=== PATIENT | female | born 1955 | race Caucasian/White ===

== ENCOUNTER 2017-06-22 17:26 | Emergency (ER) | payer SELFPAY ==
[~2017-06-22] VITALS: Ht 167.6 cm; Wt 82.0 kg
[~2017-06-22 17:26] MED LIST: CLIN1CAP5 PO; IBUP-232 PO; LORTA5 PO; MOTR200T PO
[2017-06-22 17:30] VITALS: BP 223/143; PULSE 119; RESP 18; TEMP 98.2; O2SAT 95
--- NOTE | 2017-06-22 18:55 | PD ---
HPI Chief Complaint: Oral / Dental Pain or Problem Time Seen by Provider: 18:41 Travel History International Travel<30 days: No Contact w/Intl Traveler<30days: No Traveled to known affect area: No History of Present Illness HPI 61-year-old female presents to emergency department complaining of left sided tooth pain for approximately 1 week. She describes her pain as occasionally sharp but constant that radiates into her jaw and her ear. Pain has worsened over the last 3-4 days and is excruciating. She has taken ibuprofen but this has not relieved her pain. States she has had subjective fevers but no actual temperature. Otherwise denies chest pain, shortness of breath, back pain. Denies chronic medical issues or chronic medication use. She does not have a dentist. She denies fever, chills, chest pain, shortness breath, back pain, abdominal pain. PFSH Past Medical History Asthma: No Blood Disorders: No Anxiety: No Depression: No Heart Rhythm Problems: Yes Cancer: No Cardiovascular Problems: Yes (STENT) High Cholesterol: No Chemotherapy: No Chest Pain: Yes Congestive Heart Failure: Yes COPD: Yes Diabetes: No Diminished Hearing: No Endocrine: No (S) Gastrointestinal Disorders: Yes Genitourinary: Yes Hypertension: Yes Immune Disorder: No Musculoskeletal: No Neurologic: No Psychiatric: No Reproductive: No Respiratory: No Myocardial Infarction: Yes (04/2013) Radiation Therapy: No Sleep Apnea: No (S) Thyroid Disease: No Ulcer: Yes Influenza Vaccination: No ?: Not Past Surgical History Abdominal Surgery: Yes (NAVEL REMOVED) Coronary Stent: Yes (04/2013) Gynecologic Surgery: Yes Hysterectomy: Yes Oral Surgery: Yes (TONSILECTOMY) Tonsillectomy: Yes Other Surgery: Yes (RECTAL/BLADDER/HYSTERECTOMY,CARDIAC STENT 2) Social History Alcohol Use: No (DENIES) Tobacco Use: No (1PK/DAY/ QUIT 04/2013) Substance Use: No Allergies-Medications (Allergen,Severity, Reaction): Coded Allergies: procaine (Unverified Allergy, Severe, Dizziness, 06/22/17) Reported Meds & Prescriptions Reported Meds & Active Scripts Active Tramadol (Tramadol HCl) 50 Mg Tab 50 Mg PO Q8H PRN 3 Days Penicillin V Potassium 500 Mg Tab 500 Mg PO Q8H 7 Days Magic Mouthwash Pediatric/Adult Liq (Lidocaine/Diphenhydr/Alum/Mg/Simeth) 60 Ml Susp 5 Ml SWISH-SWAL ACHS Each 5mL contains: Diphenydramine 4.5mg, Viscous Lidocaine 2% 10mg, Maalox Advanced Regular Strength 2.7ml Review of Systems Except as stated in HPI: all other systems reviewed are Neg Physical Exam Narrative GENERAL: Well-developed well-nourished in moderate distress SKIN: Focused skin assessment warm/dry. HEAD: Atraumatic. Normocephalic. EYES: Pupils equal and round. No scleral icterus. No injection or drainage. ENT: No nasal bleeding or discharge. Mucous membranes pink and moist. Poor dentition, mild erythema of the right lower gingiva near the molars. Tender to palpation without fluctuance of the left lower posterior gingiva NECK: Trachea midline. No JVD. Mild tenderness to palpation of the left anterior cervical nodes CARDIOVASCULAR: Regular rate and rhythm. No murmur appreciated. RESPIRATORY: No accessory muscle use. Clear to auscultation. Breath sounds equal bilaterally. MUSCULOSKELETAL: No obvious deformities. No clubbing. No cyanosis. No edema. NEUROLOGICAL: Awake and alert. No obvious cranial nerve deficits. Motor grossly within normal limits. Normal speech. PSYCHIATRIC: Appropriate mood and affect; insight and judgment normal. Data Data Last Documented VS Vital Signs Date Time Temp Pulse Resp B/P (MAP) Pulse Ox O2 Delivery O2 Flow Rate FiO2 06/22/17 20:01 06/22/17 19:19 88 98 06/22/17 17:30 98.2 18 Orders Orders Acetamin-Hydrocod 325-5 Mg ([place] 5-325 (06/22/17 19:00) Ed Discharge Order (06/22/17 19:54) [facility] [place] Medical Decision Making Medical Screen Exam Complete: Yes Emergency Medical Condition: Yes Differential Diagnosis Tooth abscess versus gingivitis versus pulpitis Narrative Course 61-year-old female presents to emergency department complaining of left lower tooth pain for 1 week. States that her pain has worsened over the last 3-4 days which is why she is here. Patient does not have a dentist. Physical exam demonstrates 61-year-old female in moderate distress, poor dentition, multiple dental caries. TTP left lower molars without exudate or fluctuance. Vital signs stable E force consulted. No controlled substance fills Patient prescribed antibiotics, Magic mouthwash, and a short course of tramadol. Patient advised to follow-up with a dentist and PCP Advised to return to ED if signs symptoms persist or worsen Diagnosis Primary Impression: Tooth abscess Referrals: Dentist Additional Instructions: Use mouthwash as prescribed. Continue ibuprofen for symptoms. Scripts Tramadol (Tramadol) 50 Mg Tab 50 MG PO Q8H Y for PAIN for 3 Days, #9 TAB 0 Refills Prov: Malorie Marquez MD 06/22/17 Penicillin V Potassium (Penicillin V Potassium) 500 Mg Tab 500 MG PO Q8H for Infection for 7 Days, #21 TAB 0 Refills Prov: Juan Smith MD 06/22/17 Vnowgoiuofpdoee-Sdekrlzgm-Lva-Alum-Simeth Liq (Magic Mouthwash Pediatric/Adult Liq) 60 Ml Susp 5 ML SWISH-SWAL ACHS for Mouth sores, #60 ML 0 Refills Each 5mL contains: Diphenydramine 4.5mg, Viscous Lidocaine 2% 10mg, Maalox Advanced Regular Strength 2.7ml Prov: Juan Smith MD 06/22/17 Disposition: 01 DISCHARGE HOME Condition: Stable Shelly Del Real Jun 22, 2017 18:55
[2017-06-22] MEDS ORDERED: ACETAMINOPHEN/HYDROcodone 325 MG/5 MG TAB PO ONE (19:00)
[2017-06-22] MEDS ORDERED: PENI500T PO (19:05)
[2017-06-22] MEDS ORDERED: MAGICPED SWISH-SWAL (19:05)
[2017-06-22 19:19] VITALS: BP 171/100; PULSE 88; O2SAT 98
[2017-06-22] MEDS ORDERED: TRAM50TA PO (19:53)
== END 2017-06-22 20:01 | disposition home or self-care (01) ==
LOC: PHED 17:26 → PHEFT 20:01
DX: K04.7 Periapical abscess without sinus (principal); J44.9 Chronic obstructive pulmonary disease, unspecified; I10 Essential (primary) hypertension
CPT/HCPCS: 99284

== ENCOUNTER 2017-09-12 07:59 | Inpatient (IN) | payer BC ==
[~2017-09-12] VITALS: Ht 167.6 cm; Wt 85.2 kg
[~2017-09-12 07:59] MED LIST changes: -CLIN1CAP5 PO; -IBUP-232 PO; -LORTA5 PO; +MAGICPED SWISH-SWAL; -MOTR200T PO; +PENI500T PO; +TRAM50TA PO
[2017-09-12 08:04] VITALS: BP 159/90; PULSE 90; RESP 18; TEMP 97.6; O2SAT 100
[2017-09-12] MEDS ORDERED: ASPI-183 PO (08:43)
[2017-09-12] MEDS ORDERED: IBUP-232 PO (08:43)
[2017-09-12] MEDS ORDERED: PANTOPRAZOLE INJ 80 MG in SODIUM CHLORIDE 0.9% INJ 35 ML IV ONE (08:48)
[2017-09-12] MEDS ORDERED: SODIUM CHLOR 0.9% 1000 ML INJ 1,000 ML IV SCH (08:48)
--- NOTE | 2017-09-12 08:52 | PD ---
HPI Chief Complaint: GI Bleed Time Seen by Provider: 08:35 Travel History International Travel<30 days: No Contact w/Intl Traveler<30days: No Traveled to known affect area: No History of Present Illness HPI This 62-year-old female says she's been having blood per rectum for the last 5 days. His been having very foul smelling black stools. At times they're red. She's been feeling weak and dizzy. Her says she passed out last night. Her bowel movements have been bloody with clots and she's been having multiple times per day. This started afternoon around 2 PM and she thinks she had about 4 bowel movements on . He has been bloated. This has never happened to her before. She's been taking about 6 ibuprofen per day because of back trouble. She has a history of an [place] 3-4 years ago and takes aspirin daily though she has not had it the last 2 days. She has occasional crampy lower abdominal pain. He does not drink alcohol. She has never had endoscopy. She has had hysterectomy and repair of a rectal prolapse several years ago. PFSH Past Medical History Hx Anticoagulant Therapy: Yes (ASA 325MG DAILY) Asthma: No Blood Disorders: No Anxiety: No Depression: No Heart Rhythm Problems: Yes Cancer: No Cardiovascular Problems: Yes (STENT) High Cholesterol: No Chemotherapy: No Chest Pain: Yes Congestive Heart Failure: Yes COPD: Yes Diabetes: No Diminished Hearing: No Endocrine: No (S) Gastrointestinal Disorders: Yes Genitourinary: Yes Hypertension: Yes Immune Disorder: No Implanted Vascular Access Dvce: No Musculoskeletal: No Neurologic: No Psychiatric: No Reproductive: No Respiratory: No Myocardial Infarction: Yes (04/2013) Radiation Therapy: No Sleep Apnea: No (S) Thyroid Disease: No Ulcer: Yes Tetanus Vaccination: > 5 Years ?: Not Past Surgical History Abdominal Surgery: Yes (NAVEL REMOVED) Coronary Stent: Yes (04/2013) Gynecologic Surgery: Yes Hysterectomy: Yes Oral Surgery: Yes (TONSILECTOMY) Tonsillectomy: Yes Other Surgery: Yes (RECTAL/BLADDER/HYSTERECTOMY,CARDIAC STENT 2) Social History Alcohol Use: No (DENIES) Tobacco Use: No Substance Use: No Allergies-Medications (Allergen,Severity, Reaction): Coded Allergies: procaine (Unverified Allergy, Severe, Dizziness, 06/22/17) Reported Meds & Prescriptions Reported Meds & Active Scripts Active Reported Ibuprofen 600 Mg Tab 600 Mg PO Q6H PRN Aspirin 325 Mg Tab 325 Mg PO DAILY Review of Systems General / Constitutional: No: Fever, Chills Eyes: No: Diploplia, Blurred Vision HENT: No: Headaches, Vertigo Cardiovascular: No: Chest Pain or Discomfort, Palpitations Respiratory: No: Cough, Shortness of Breath Gastrointestinal: Positive: Nausea, Abdominal Pain, Hematochezia, Loss of Appetite Genitourinary: No: Urgency, Frequency Musculoskeletal: No: Myalgias, Arthralgias Skin: No Rash, No Itching Neurologic: Positive: Weakness, Dizziness, Syncope Endocrine: No: Heat Intolerance, Cold Intolerance Hematologic/Lymphatic: No: Easy Bruising Physical Exam Narrative GENERAL: Well-developed female SKIN: Focused skin assessment warm/dry. HEAD: Atraumatic. Normocephalic. EYES: Pupils equal and round. No scleral icterus. No injection or drainage. ENT: No nasal bleeding or discharge. Mucous membranes pink and moist. NECK: Trachea midline. No JVD. CARDIOVASCULAR: Regular rate and rhythm. No murmur appreciated. RESPIRATORY: No accessory muscle use. Clear to auscultation. Breath sounds equal bilaterally. GASTROINTESTINAL: Abdomen soft, non-tender, nondistended. Hepatic and splenic margins not palpable. Rectal exam there are no masses and no tenderness. There is some black stool which is guaiac positive MUSCULOSKELETAL: No obvious deformities. No clubbing. No cyanosis. No edema. NEUROLOGICAL: Awake and alert. No obvious cranial nerve deficits. Motor grossly within normal limits. Normal speech. PSYCHIATRIC: Appropriate mood and affect; insight and judgment normal. Data Data Last Documented VS Vital Signs Date Time Temp Pulse Resp B/P (MAP) Pulse Ox O2 Delivery O2 Flow Rate FiO2 09/12/17 08:40 18 09/12/17 08:04 97.6 90 159/90 (113) 100 Room Air Orders Orders Complete Blood Count With Diff (09/12/17 08:48) Comprehensive Metabolic Panel (09/12/17 08:48) Lipase (09/12/17 08:48) Prothrombin Time / Inr (Pt) (09/12/17 08:48) Act Partial Throm Time (Ptt) (09/12/17 08:48) Urinalysis - C+S If Indicated (09/12/17 08:48) Type And Screen (09/12/17 08:48) Ecg Monitoring (09/12/17 08:48) Iv Access Insert/Monitor (09/12/17 08:48) Oximetry (09/12/17 08:48) Sodium Chlor 0.9% 1000 Ml Inj (Ns 1000 M (09/12/17 08:48) Sodium Chloride 0.9% Flush (Ns Flush) (09/12/17 09:00) Sodium Chloride 0.9... W/Pantoprazole In (09/12/17 08:48) Sodium Chloride 0.9... W/Pantoprazole In (09/12/17 08:48) Urine Culture (09/12/17 09:00) Labs Laboratory Tests Test 09/12/17 09:00 09/12/17 09:35 Urine Color YELLOW Urine Turbidity HAZY Urine pH 6.0 Urine Specific [place] 1.015 Urine Protein NEG mg/dL Urine Glucose (UA) NEG mg/dL Urine Ketones NEG mg/dL Urine Occult Blood TRACE Urine Nitrite NEG Urine Bilirubin NEG Urine Leukocyte Esterase MOD Urine RBC 0-2 /hpf Urine WBC 25-49 /hpf Urine Squamous Epithelial Cells > 8 /hpf Urine Bacteria FEW /hpf Microscopic Urinalysis Comment CULTURE INDICATED White Blood Count 10.2 TH/MM3 Red Blood Count 3.47 MIL/MM3 Hemoglobin 9.9 GM/DL Hematocrit 30.0 % Mean Corpuscular Volume 86.4 FL Mean Corpuscular Hemoglobin 28.5 PG Mean Corpuscular Hemoglobin Concent 33.0 % Red Cell Distribution Width 12.6 % Platelet Count 233 TH/MM3 Mean Platelet Volume 8.9 FL Neutrophils (%) (Auto) 71.7 % Lymphocytes (%) (Auto) 19.6 % Monocytes (%) (Auto) 4.8 % Eosinophils (%) (Auto) 0.7 % Basophils (%) (Auto) 3.2 % Neutrophils # (Auto) 7.3 TH/MM3 Lymphocytes # (Auto) 2.0 TH/MM3 Monocytes # (Auto) 0.5 TH/MM3 Eosinophils # (Auto) 0.1 TH/MM3 Basophils # (Auto) 0.3 TH/MM3 CBC Comment DIFF FINAL Differential Comment MDM Medical Decision Making Medical Screen Exam Complete: Yes Emergency Medical Condition: Yes Medical Record Reviewed: Yes Differential Diagnosis Differential includes upper GI bleed, lower GI bleed, anemia Narrative Course Her hemoglobin is 9.9. Urinalysis shows an incidental urinary tract infection Josh Pretty MD Sep 12, 2017 08:52
[2017-09-12] MEDS ORDERED: SODIUM CHLORIDE 0.9% FLUSH 10 ML FLUSH IVF PRN (09:00)
[2017-09-12 09:35] VITALS: O2SAT 96
[2017-09-12 09:43] LABS: AUTOMATED NEUTROPHIL # 7.3 TH/MM3 (1.8-7.7); BASOPHIL # 0.3 TH/MM3 (0-0.2); BASOPHIL % 3.2 % (0.0-2.0); EOSINOPHIL # 0.1 TH/MM3 (0-0.4); EOSINOPHIL % 0.7 % (0.0-4.0); HEMOGLOBIN 9.9 GM/DL (11.6-15.3); LYMPH % 19.6 % (9.0-44.0); MEAN CELL VOLUME 86.4 FL (80.0-100.0); MEAN CORPUSCULAR HEMOGLOBIN 28.5 PG (27.0-34.0); MEAN PLATELET VOLUME 8.9 FL (7.0-11.0); MONO % 4.8 % (0.0-8.0); MONOCYTE # 0.5 TH/MM3 (0-0.9); NEUT % 71.7 % (16.0-70.0); PLATELET COUNT 233 TH/MM3 (150-450); RED BLOOD COUNT 3.47 MIL/MM3 (4.00-5.30); RED CELL DISTRIBUTION WIDTH 12.6 % (11.6-17.2); WHITE BLOOD COUNT 10.2 TH/MM3 (4.0-11.0)
[2017-09-12 09:44] LABS: BILIRUBIN, URINE NEG (NEG); GLUCOSE,URINE NEG (NEG); KETONE, URINE NEG (NEG); NITRITE,URINE NEG (NEG); URINE LEUKOCYTE ESTERASE MOD (NEG)
[2017-09-12 09:46] LABS: BLOOD, URINE TRACE (NEG); URINE COLOR YELLOW (YELLW/STRAW)
[2017-09-12 09:48] LABS: BACTERIA, URINE FEW /hpf; RBC, URINE 0-2 /hpf (0-3); SQUAMOUS EPITHELIAL CELL URINE > 8 /hpf (0-5)
[2017-09-12 09:55] LABS: PROTHROMBIN TIME - PATIENT 10.5 SEC (9.8-11.6)
[2017-09-12 09:56] LABS: ALBUMIN 3.7 GM/DL (3.4-5.0); BICARBONATE 24.1 MEQ/L (21.0-32.0); CALCIUM 8.8 MG/DL (8.5-10.1); GLUCOSE,RANDOM 115 MG/DL (74-106)
[2017-09-12 09:57] LABS: LIPASE 71 U/L (73-393)
[2017-09-12 10:00] LABS: CREATININE 0.73 MG/DL (0.50-1.00); GLOMERULAR FILTRATION RATE 81 ML/MIN (>89)
[2017-09-12] MEDS ORDERED: cefTRIAXone INJ 1,000 MG in SODIUM CHLORIDE 0.9% INJ 100 ML IV ONE (10:00)
[2017-09-12 10:01] LABS: TOTAL BILIRUBIN ADULT 0.5 MG/DL (0.2-1.0); TOTAL PROTEIN 6.7 GM/DL (6.4-8.2)
[2017-09-12 10:03] LABS: ALKALINE PHOSPHATASE 60 U/L (45-117)
[2017-09-12 10:04] LABS: CHLORIDE 105 MEQ/L (98-107); SODIUM (NA) 138 MEQ/L (136-145)
[2017-09-12 10:07] LABS: ALT (GPT) 22 U/L (10-53)
[2017-09-12 10:11] LABS: AST (GOT) 15 U/L (15-37); BLOOD UREA NITROGEN 17 MG/DL (7-18)
[2017-09-12] MEDS ORDERED: SODIUM CHLORIDE 0.9% FLUSH 10 ML FLUSH IV FLUSH PRN (10:45)
[2017-09-12] MEDS ORDERED: NALOXONE HCL 0.4 MG/ML AMP IV PUSH PRN (10:45)
[2017-09-12] MEDS ORDERED: ONDANSETRON HCL 4 MG/2 ML VIAL IVP PRN (10:45)
[2017-09-12 10:50] VITALS: BP 137/73; PULSE 77; RESP 16; O2SAT 99
[2017-09-12] MEDS: PANTOPRAZOLE INJ 80 MG in SODIUM CHLORIDE 0.9% INJ 100 ML IV SCH ×2 (11:00→19:53)
[2017-09-12] MEDS: SODIUM CHLOR 0.9% 1000 ML INJ 1,000 ML IV SCH ×2 (11:47→19:58)
[2017-09-12 12:50] VITALS: BP 127/72; PULSE 67; TEMP 98.3; O2SAT 99
--- NOTE | 2017-09-12 13:57 | HHI.HP ---
[facility] Service [place] [facility] Primary Care Physician No Primary Care Physician Admission Diagnosis GI BLEED Diagnoses: Chief Complaint: Abdominal pain and GI bleed Travel History International Travel<30 Days: No Contact w/Intl Traveler <30 Da: No Traveled to Known Affected Are: No History of Present Illness This is a 62-year-old female with history of chronic back pain who presented with GI bleed. Patient stated that 5 days ago on she had severe bleeding that started with every bowel movement and abdominal pain. Patient stated that blood described as black, dark red, bright red blood. She said it was a lot but could not quantify the amount. Patient has never had a colonoscopy done. She also complained about abdominal pain that started with the GI bleed. She describes 2 different types of pain. Abdominal pain located in the lower abdomen is constant and more of an annoying type pain. She also has epigastric pain which occurs with oral intake. Patient takes about 6 tablets of ibuprofen daily due to her chronic back pain. She is also on aspirin 365 mg for her coronary artery disease. She stated that she takes the higher dose but was told by her swabber to take a baby aspirin. Patient also stated that she's been having diarrhea. She stated that stools have a bad odor to it. Deny eating any type of beef. She also denied any recent travels or antibiotic use. Father of unknown cancer. Paternal cousin had colon cancer and at the age of 57. All other review system reviewed and negative. Past Family Social History Past Medical History Chronic low back pain Coronary artery disease. Past Surgical History Cardiac catheterization with stent placement Reported Medications Ibuprofen 600 Mg Tab 600 Mg PO Q6H PRN Aspirin 325 Mg Tab 325 Mg PO DAILY Allergies: Coded Allergies: procaine (Unverified Allergy, Severe, Dizziness, 06/22/17) Active Ordered Medications Current Medications Sodium Chloride 1,000 ml @ 125 mls/hr Q8H IV Last administered on 09/12/17at 10 :01; Start 09/12/17 at 08:48; Stop 09/12/17 at 16:47 Sodium Chloride (NS Flush) 2 ml UNSCH PRN IVF FLUSH AFTER USING IV ACCESS; Start 09/12/17 at 09:00; Stop 09/12/17 at 14:12; Status DC Pantoprazole Sodium 80 mg/ Sodium Chloride 35 ml @ 420 mls/hr Q5M ONCE IV Last administered on 09/12/17at 10:53; Start 09/12/17 at 08:48; Stop 09/12/17 at 08:52; Status DC Pantoprazole Sodium 80 mg/ Sodium Chloride 100 ml @ 10 mls/hr Q10H IV Last administered on 09/12/17at 11:00; Start 09/12/17 at 08:48 Ceftriaxone Sodium 1000 mg/ Sodium Chloride 100 ml @ 200 mls/hr ONCE ONCE IV Last administered on 09/12/17at 10:02; Start 09/12/17 at 10:00; Stop 09/12/17 at 10:29; Status DC Sodium Chloride 1,000 ml @ 100 mls/hr Q10H IV Last administered on 09/12/17at 11:47; Start 09/12/17 at 10:45 Sodium Chloride (NS Flush) 2 ml UNSCH PRN IV FLUSH FLUSH AFTER USING IV ACCESS ; Start 09/12/17 at 10:45 Sodium Chloride (NS Flush) 2 ml BID IV FLUSH ; Start 09/12/17 at 21:00 Ondansetron HCl (Zofran Inj) 4 mg Q6H PRN IVP NAUSEA OR VOMITING; Start at 10:45 Naloxone HCl (Narcan Inj) 0.4 mg UNSCH PRN IV PUSH SEE LABEL COMMENTS; Start at 10:45 Tramadol/ Acetaminophen (Ultracet 37.5-325 Mg) 1 tab Q4H PRN PO PAIN >3; Start 09/12/17 at 14:00 Family History Father from unknown cancer. Mother from a brain tumor. Paternal cousin had colon cancer at age 57. Paternal grandfather had leukemia. Social History Deny any tobacco, alcohol, or illicit drug use. Physical Exam Vital Signs Vital Signs Date Time Temp Pulse Resp B/P (MAP) Pulse Ox O2 Delivery O2 Flow Rate FiO2 09/12/17 13:40 09/12/17 12:50 98.3 67 127/72 (90) 99 09/12/17 10:50 77 16 137/73 (94) 99 09/12/17 09:35 96 09/12/17 08:40 18 09/12/17 08:04 97.6 90 18 159/90 (113) 100 Room Air Physical Exam GENERAL: This is a well-nourished, well-developed patient, in no apparent distress. SKIN: No rashes, ecchymoses or lesions. Cool and dry. HEAD: Atraumatic. Normocephalic. No temporal or scalp tenderness. EYES: Pupils equal round and reactive. Extraocular motions intact. No scleral icterus. No injection or drainage. ENT: Nose without bleeding, purulent drainage or septal hematoma. Throat without erythema, tonsillar hypertrophy or exudate. Uvula midline. Airway patent. NECK: Trachea midline. No JVD or lymphadenopathy. Supple, nontender, no meningeal signs. CARDIOVASCULAR: Regular rate and rhythm without murmurs, gallops, or rubs. RESPIRATORY: Clear to auscultation. Breath sounds equal bilaterally. No wheezes , rales, or rhonchi. GASTROINTESTINAL: Abdomen soft, nondistended. No hepato-splenomegaly, or palpable masses. No guarding. Positive tenderness to palpation in epigastric area and the lower abdomen with deep pressure. Most tender in the epigastric area. MUSCULOSKELETAL: Extremities without clubbing, cyanosis, or edema. No joint tenderness, effusion, or edema noted. No calf tenderness. Negative Homans sign bilaterally. NEUROLOGICAL: Awake and alert. Cranial nerves II through XII intact. Motor and sensory grossly within normal limits. Five out of 5 muscle strength in all muscle groups. Normal speech. Laboratory Laboratory Tests Test 09/12/17 09:00 09/12/17 09:35 Urine Color YELLOW Urine Turbidity HAZY Urine pH 6.0 Urine Specific [place] 1.015 Urine Protein NEG Urine Glucose (UA) NEG Urine Ketones NEG Urine Occult Blood TRACE Urine Nitrite NEG Urine Bilirubin NEG Urine Leukocyte Esterase MOD Urine RBC 0-2 Urine WBC 25-49 Urine Squamous Epithelial Cells > 8 Urine Bacteria FEW Microscopic Urinalysis Comment CULTURE INDICATED White Blood Count 10.2 Red Blood Count 3.47 Hemoglobin 9.9 Hematocrit 30.0 Mean Corpuscular Volume 86.4 Mean Corpuscular Hemoglobin 28.5 Mean Corpuscular Hemoglobin Concent 33.0 Red Cell Distribution Width 12.6 Platelet Count 233 Mean Platelet Volume 8.9 Neutrophils (%) (Auto) 71.7 Lymphocytes (%) (Auto) 19.6 Monocytes (%) (Auto) 4.8 Eosinophils (%) (Auto) 0.7 Basophils (%) (Auto) 3.2 Neutrophils # (Auto) 7.3 Lymphocytes # (Auto) 2.0 Monocytes # (Auto) 0.5 Eosinophils # (Auto) 0.1 Basophils # (Auto) 0.3 CBC Comment DIFF FINAL Differential Comment Prothrombin Time 10.5 Prothromb Time International Ratio 1.0 Activated Partial Thromboplast Time 23.2 Blood Urea Nitrogen 17 Creatinine 0.73 Random Glucose 115 Total Protein 6.7 Albumin 3.7 Calcium Level 8.8 Alkaline Phosphatase 60 Aspartate Amino Transf (AST/SGOT) 15 Alanine Aminotransferase (ALT/SGPT) 22 Total Bilirubin 0.5 Sodium Level 138 Potassium Level 4.0 Chloride Level 105 Carbon Dioxide Level 24.1 Anion Gap 9 Estimat Glomerular Filtration Rate 81 Lipase 71 Date/Time Source Procedure Growth Status 09/12/17 09:00 Urine Clean Catch Urine Culture Pending Received Result Diagram: 09/12/17 0935 09/12/1735 Caprini VTE Risk Assessment Caprini VTE Risk Assessment: Mod/High Risk (score >= 2) Caprini Risk Assessment Model Point Value = 1 Point Value = 2 Point Value = 3 Point Value = 5 Age 41-60 Minor surgery BMI > 25 kg/m2 Swollen legs Varicose veins or History of unexplained or recurrent spontaneous Oral contraceptives or hormone replacement Sepsis (< 1 month) Serious lung disease, including pneumonia (< 1 month) Abnormal pulmonary function Acute myocardial infarction Congestive heart failure (< 1 month) History of inflammatory bowel disease Medical patient at bed rest Age 61-74 Arthroscopic surgery Major open surgery (> 45 min) Laparoscopic surgery (> 45 min) Malignancy Confined to bed (> 72 hours) Immobilizing plaster cast Central venous access Age >= 75 History of VTE Family history of VTE Factor V Leiden Prothrombin [id number] Lupus anticoagulant Anticardiolipin antibodies Elevated serum homocysteine Heparin-induced thrombocytopenia Other congenital or acquired thrombophilia Stroke (< 1 month) Elective arthroplasty Hip, pelvis, or leg fracture Acute spinal cord injury (< 1 month) Prophylaxis Regimen Total Risk Factor Score Risk Level Prophylaxis Regimen 0-1 Low Early ambulation 2 Moderate Order ONE of the following: *Sequential Compression Device (SCD) *Heparin 5000 units SQ BID 3-4 Higher Order ONE of the following medications: *Heparin 5000 units SQ TID *Enoxaparin/Lovenox 40 mg SQ daily (WT < 150 kg, CrCl > 30 mL/min) *Enoxaparin/Lovenox 30 mg SQ daily (WT < 150 kg, CrCl > 10-29 mL/min) *Enoxaparin/Lovenox 30 mg SQ BID (WT < 150 kg, CrCl > 30 mL/min) AND/OR *Sequential Compression Device (SCD) 5 or more Highest Order ONE of the following medications: *Heparin 5000 units SQ TID (Preferred with Epidurals) *Enoxaparin/Lovenox 40 mg SQ daily (WT < 150 kg, CrCl > 30 mL/min) *Enoxaparin/Lovenox 30 mg SQ daily (WT < 150 kg, CrCl > 10-29 mL/min) *Enoxaparin/Lovenox 30 mg SQ BID (WT < 150 kg, CrCl > 30 mL/min) AND *Sequential Compression Device (SCD) Assessment and Plan Assessment and Plan 62-year-old female presented with GI bleed and abdominal pain GI bleed and abdominal pain -Due to epigastric pain and positive history for dark stools need to consider upper GI bleed. Patient also has been taking high dose of aspirin and ibuprofen daily which posterior at risk for upper GI bleed. -Labs reviewed and hemoglobin is 9.9 which is lower from his baseline done in October 2013 with a hemoglobin of 13. -Patient is hemodynamically stable and abdominal exam is benign. -She was given a loading dose of Protonix in the emergency department. Will start Protonix drip. -We will trend hemoglobin and transfuse as needed if hemoglobin is less than 8 with active GI bleeding. -Will give supportive care with IV fluids. Anemia -Most likely secondary to GI bleed. Prior hemoglobin 13. Hemoglobin now 9.9. -See treatment as above. Diarrhea -Will get stool studies and C. difficile. -Will give supportive care with IV fluids. Chronic lower back pain -Patient usually takes ibuprofen but in light of GI bleed will discontinue ibuprofen. We will give patient tramadol/acetaminophen for pain. Coronary artery disease -Patient is taking aspirin 365 mg daily. Per patient her swabber wanted her to take baby aspirin. In light of active GI bleed will hold aspirin at the moment. Once cleared by GI will restart aspirin at a lower dose 81 mg as directed by her swabber.. DVT prophylaxis -Prophylaxis contraindicated. SCDs. Discussed Condition With patient Physician Certification 2 Midnight Certification Type: Admission for Inpatient Services Order for Inpatient Services The services are ordered in accordance with Medicare regulations or non- Medicare payer requirements, as applicable. In the case of services not specified as inpatient-only, they are appropriately provided as inpatient services in accordance with the 2-midnight benchmark. Estimated LOS (days): 2 2 days is the estimated time the patient will need to remain in the hospital, assuming treatment plan goals are met and no additional complications. Post-Hospital Plan: [place] Leona Ochoa MD Sep 12, 2017 13:57
[2017-09-12 14:40] VITALS: BP 117/63; PULSE 70; RESP 20; TEMP 97.7; O2SAT 98
[2017-09-12] MEDS: traMADol/ACETAMINOPHEN 37.5/325 1 TAB PO PRN ×2 (17:24→22:20)
[2017-09-12] MEDS ORDERED: PEG (High)/E-LYTE SOLN 4000 ML BTL PO ONE (19:15)
[2017-09-12] MEDS: SODIUM CHLORIDE 0.9% FLUSH 10 ML FLUSH IV FLUSH SCH (19:58)
[2017-09-12 20:00] VITALS: BP 151/85; PULSE 74; RESP 20; TEMP 96.5; O2SAT 100
[2017-09-12] MEDS ORDERED: DIATRIZOATE MEGLUM/DIATRIZOATE SOD 9 ML CUP PO ONE (20:30)
--- NOTE | 2017-09-12 22:15 | MB ---
cc: MARANDA MAGANA M.D. DATE OF CONSULTATION 09/12/[address] Ochoa REASON FOR CONSULTATION GI bleed. HISTORY OF THE PRESENT ILLNESS Ms. Crawford is a 62-year-old lady with no major medical problems came to emergency room with GI bleed. She states starting she had severe pain in the epigastrium, bloating, followed by pain in the lower abdomen. She also reports having dark, tarry stool followed by some clots of red blood. She denies any vomiting but she does have bloating and nausea. She denies any fever or chills, weight loss or weight gain. She is taking aspirin and ibuprofen. She also stated she did have some diarrhea. Never had endoscopy or colonoscopy before. Denies any recent travel or antibiotic use. PAST MEDICAL HISTORY 1. Chronic low back pain. 2. Coronary artery disease. PAST SURGICAL HISTORY History of cardiac catheterization. MEDICATIONS 1. Ibuprofen. 2. Aspirin. ALLERGIES PROCAINE. In the hospital she was started on: 1. Protonix. 2. Ceftriaxone. 3. Zofran. 4. Tramadol. SOCIAL HISTORY Denies any smoking, drinking or drug use. FAMILY HISTORY Mother of a brain tumor, a cousin had colon cancer 57. Paternal grandfather had leukemia. Father had cancer, she is not sure what type. REVIEW OF SYSTEMS CONSTITUTIONAL: She denies any fever or chills, weight loss or weight gain. ENT: No alteration in baseline hearing or visual acuity. PULMONARY: Denies any chest pain, shortness of breath. GASTROINTESTINAL: As above. GENITOURINARY: Denies dysuria, hematuria. HEMATOLOGIC: Denies any history of anemia or bleeding disorder. SKIN: No alteration in baseline skin lesion. NEUROLOGIC: No history of TIA or CVA kind of symptoms. On clinical exam she is sitting comfortable in bed in no acute distress. Her hemoglobin on admission is 9.9 currently 8.6. Her chemistry is suggestive of glucose 115, triglycerides 165, lipase 71, BUN 17, creatinine 0.763. Labs were normal otherwise. IMPRESSION Ms. Crawford is a very pleasant 62-year-old lady admitted to the hospital with symptomatic anemia, history of NSAID use, most likely peptic ulcer disease. Abdominal pain in the lower abdomen and GI bleed, possible secondary to peptic ulcer disease versus ischemic colitis. GI bleed hemodynamically stable. No indication of active bleed at this time. Diarrhea rule out infectious colitis versus ischemic colitis. RECOMMENDATIONS EGD / colonoscopy in the morning. Transfuse to keep hemoglobin more than 8. Monitor H&H closely. Stool studies. CT abdomen and pelvis. Continue Protonix drip. Risks, benefits of the above procedures were discussed with the patient and she is agreeing with it. I like to thank Dr. Ochoa for referring her to our office for consultation. MD SULMA MerinoB/KK /7:02 PM /9:54 PM MTDD
[2017-09-13] VITALS: BP 147/94; PULSE 73; RESP 20; TEMP 96.2; O2SAT 98
[2017-09-13] MEDS ORDERED: IOHEXOL 350 MG/ML 10 ML VIAL (for RAD DIAG) IVCONTRAST ONE (00:46)
--- NOTE | 2017-09-13 00:59 | RADRPT ---
EXAM DATE/TIME: 09/13/2017 00:26 [facility] COMPARISON: No previous studies available for comparison. INDICATIONS : Abdominal pain and bleeding. IV CONTRAST: 100 cc Omnipaque 350 (iohexol) IV ORAL CONTRAST: Prescribed oral contrast ingested. RADIATION DOSE: 19.03 CTDIvol (mGy) MEDICAL HISTORY : Cardiovascular disease. SURGICAL HISTORY : Coronary artery stent. Hysterectomy.Rectal and bladder surgery. Umbilical. ENCOUNTER: Initial ACUITY: 2 days PAIN SCALE: 7/10 LOCATION: lower quadrant TECHNIQUE: Volumetric scanning of the abdomen and pelvis was performed. Using automated exposure control and ad justment of the mA and/or kV according to patient size, radiation dose was kept as low as reasonably achievable to obtain optimal diagnostic quality images. DICOM format image data is available electro nically for review and comparison. FINDINGS: LOWER LUNGS: There is linear suspected atelectasis of the right lower lobe. LIVER: There is diffuse decreased attenuation to the liver. There is a 3.5 cm focal lesion seen at the later al aspect of the right lobe of the liver. This demonstrates some peripheral enhancement. SPLEEN: Normal size without lesion. PANCREAS: Within normal limits. KIDNEYS: Normal in size and shape. There is no solid mass, stone or hydronephrosis. There is a 4.7 cm cyst in the medial right kidney. ADRENAL GLANDS: Within normal limits. VASCULAR: There is no aortic aneurysm. BOWEL/MESENTERY: There are diverticula seen throughout the colon being most numerous in the sigmoid region. Definite s urrounding inflammatory change is not clearly seen. ABDOMINAL WALL: Within normal limits. RETROPERITONEUM: There is no lymphadenopathy. BLADDER: No wall thickening or mass. REPRODUCTIVE: The patient is status post hysterectomy. INGUINAL: There is no lymphadenopathy or hernia. MUSCULOSKELETAL: There is degenerative change in the lumbar spine. CONCLUSION: 1. Sigmoid colon diverticula. 2. Hepatic steatosis. 3. 2.5 cm focal hepatic lesion. This is nonspecific. The peripheral enhancement suggesting this may r epresent a hemangioma. This could be further evaluated as an outpatient. 4. Right renal cyst. Raúl Perdue MD on September 13, 2017 at 0:51 Board Certified Radiologist. This report was verified electronically.
[2017-09-13 04:00] VITALS: BP 154/85; PULSE 67; RESP 20; TEMP 97.2; O2SAT 98
[2017-09-13] MEDS: SODIUM CHLOR 0.9% 1000 ML INJ 1,000 ML IV SCH (05:05)
[2017-09-13] MEDS: PANTOPRAZOLE INJ 80 MG in SODIUM CHLORIDE 0.9% INJ 100 ML IV SCH (05:08)
[2017-09-13 06:27] LABS: AUTOMATED NEUTROPHIL # 4.1 TH/MM3 (1.8-7.7); BASOPHIL % 0.6 % (0.0-2.0); EOSINOPHIL # 0.2 TH/MM3 (0-0.4); EOSINOPHIL % 3.1 % (0.0-4.0); HEMATOCRIT 24.1 % (35.0-46.0); HEMOGLOBIN 8.2 GM/DL (11.6-15.3); LYMPHOCYTE # 2.3 TH/MM3 (1.0-4.8); MEAN CELL VOLUME 87.7 FL (80.0-100.0); MEAN CORPUSCULAR HEMOGLOBIN 29.7 PG (27.0-34.0); MEAN CORPUSCULAR HGB CONC 33.9 % (32.0-36.0); MEAN PLATELET VOLUME 8.7 FL (7.0-11.0); MONO % 6.4 % (0.0-8.0); MONOCYTE # 0.4 TH/MM3 (0-0.9); NEUT % 56.9 % (16.0-70.0); PLATELET COUNT 206 TH/MM3 (150-450); RED BLOOD COUNT 2.75 MIL/MM3 (4.00-5.30); RED CELL DISTRIBUTION WIDTH 12.7 % (11.6-17.2)
[2017-09-13 07:04] LABS: BICARBONATE 26.4 MEQ/L (21.0-32.0); CALCIUM 7.7 MG/DL (8.5-10.1); CREATININE 0.6 MG/DL (0.50-1.00)
--- NOTE | 2017-09-13 07:39 | GIPROC ---
[facility] [address] [place] [address], [id number] EGD PROCEDURE REPORT EXAM DATE: 09/13/2017 PATIENT NAME: Chantel Crawford MR #: [id number] BIRTHDATE: 1955 ATTENDING: Herminia Mathis MD ORDER #: [id number] TELEPHONE LINES REPAIRER: Dian Howard and Too Gorman STATUS: inpatient INDICATIONS: The patient is a 62 yr old female here for an EGD due to gi bleeding PROCEDURE PERFORMED: EGD w/ biopsy MEDICATIONS: None and Per Anesthesia. TOPICAL ANESTHETIC: none CONSENT: The patient understands the risks and benefits of the procedure and understands that these risks include, but are not limited to: sedation, allergic reaction, infection, perforation and/or bleeding. Alternative means of evaluation and treatment include, among others: physical exam, x-rays, and/or surgical intervention. The patient elects to proceed with this endoscopic procedure. medical equipment was checked for proper function. Hand hygiene and appropriate measures for infection prevention was taken. After the risks, benefits and alternatives of the procedure were thoroughly explained, Informed consent was verified, confirmed and timeout was successfully executed by the treatment team. The patient was anesthetized with topical anesthesia and the EC-3490Li (Pedi C) endoscope was introduced through the mouth and advanced to the second portion of the duodenum. Retroflexed views revealed a hiatal hernia The gastroscope was then slowly withdrawn and removed. Gastritis antrum-biospy. ADVERSE EVENTS: There were no complications. IMPRESSIONS: 1. Gastritis antrum-biospy 2. Retroflexed views revealed a hiatal hernia RECOMMENDATIONS: 1. Await biopsy results. Biopsy results will not be ready for 7-10 days. If you don't hear from us in two weeks, call our office for biopsy results. 2. Anti-reflux regimen 3. Continue PPI 4. Avoid NSAIDS PATIENT CONDITION: stable DISPOSITION: Inpatient REPEAT EXAM: Return as needed for EGD Herminia Mathis MD eSigned: Herminia Mathis MD 09/13/2017 7:38 AM cc:
--- NOTE | 2017-09-13 07:41 | GIPROC ---
[facility] [address] [place] [address], [id number] COLONOSCOPY PROCEDURE REPORT EXAM DATE: 09/13/2017 PATIENT NAME: Chantel Crawford MR #: [id number] BIRTHDATE: 1955 ENDOSCOPIST: Herminia Mathis MD ORDER #: [id number] BODY TECHNICIAN/PAINTER: Dian Howard and Too Gorman STATUS: inpatient INDICATIONS: The patient is a 62 yr old female here for a colonoscopy due to gi bleeding PROCEDURE PERFORMED: Colonoscopy, diagnostic MEDICATIONS: None and Per Anesthesia. PREP QUALITY: fair PREP TYPE:Other: ESTIMATED BLOOD LOSS: None CONSENT: The patient understands the risks and benefits of the procedure and understands that these risks include, but are not limited to: sedation, allergic reaction, infection, perforation and/or bleeding. Alternative means of evaluation and treatment include, among others: physical exam, x-rays, and/or surgical intervention. The patient elects to proceed with this endoscopic procedure. medical equipment was checked for proper function. Hand hygiene and appropriate measures for infection prevention was taken. After the risks, benefits and alternatives of the procedure were thoroughly explained, Informed consent was verified, confirmed and timeout was successfully executed by the treatment team. A digital exam revealed external hemorrhoids The Pentax EC-3490Li endoscope was introduced through the anus and advanced to the cecum, which was identified by both the appendix and ileocecal valve. The instrument was then slowly withdrawn as the colon was fully examined. COLON FINDINGS: Diverticulosisw sigmoid,descending old blood up to desecing colon, agressive washing done-no active bleeding seen. Retroflexed views revealed internal hemorrhoids and Retroflexed views revealed medium internal hemorrhoids The scope was then completely withdrawn from the patient and the procedure terminated. PROCEDURE WITHDRAWAL TIME:13minutes ADVERSE EVENTS: There were no complications. IMPRESSIONS: 1. Diverticulosisw sigmoid,descending old blood up to desecing colon, agressive washing done-no active bleeding seen 2. Retroflexed views revealed internal hemorrhoids 3. Retroflexed views revealed medium internal hemorrhoids 4. Revealed external hemorrhoids RECOMMENDATIONS: 1. Benefiber 2 tsp daily 2. Avoid NSAIDS and Aspirin 3. Probiotics from any [employer] or health food store 4. Yearly rectal exams 5. If further bleeding order stat bleeding scan advance diet mri liver RECALL: Return 5 years Colonoscopy Herminia Mathis MD eSigned: Herminia Mathis MD 09/13/2017 7:41 AM cc: PATIENT NAME: Chantel Crawford MR#: [id number]
[2017-09-13 08:00] VITALS: BP_SYST 138; BP_SYST 161; BP_DIAS 74; BP_DIAS 85; PULSE 67; PULSE 77; RESP 16; RESP 18; TEMP 97; O2SAT 96
[2017-09-13] MEDS: SODIUM CHLORIDE 0.9% FLUSH 10 ML FLUSH IV FLUSH SCH (08:19)
[2017-09-13] MEDS: traMADol/ACETAMINOPHEN 37.5/325 1 TAB PO PRN ×2 (08:51→16:15)
[2017-09-13] MEDS ORDERED: GADODIAMIDE PF 287 MG/ML 20 ML VIAL (for RAD MRI) IVCONTRAST ONE (11:39)
[2017-09-13 12:00] VITALS: BP 136/75; PULSE 79; RESP 18; TEMP 97.6; O2SAT 98
--- NOTE | 2017-09-13 12:12 | HHI.PR ---
Subjective Remarks Follow up GI bleed, anemia. Patient had EGD/colonoscopy this morning. She states that she is tired today. Mild dyspnea with activity. No nausea/vomiting. Has not tried to eat anything. Objective Vitals Vital Signs Date Time Temp Pulse Resp B/P (MAP) Pulse Ox O2 Delivery O2 Flow Rate FiO2 09/13/17 08:05 97.8 70 16 122/85 (97) 99 09/13/17 08:00 97.0 67 18 138/85 (102) 96 09/13/17 07:46 97.8 75 16 124/78 (93) 98 09/13/17 06:40 98.0 77 18 160/87 (111) 99 09/13/17 04:00 97.2 67 20 154/85 (108) 98 09/13/17 00:00 96.2 73 20 147/94 (111) 98 09/12/17 20:00 96.5 74 20 151/85 (107) 100 09/12/17 18:24 18 09/12/17 14:40 97.7 70 20 117/63 (81) 98 09/12/17 13:40 09/12/17 12:50 98.3 67 127/72 (90) 99 I/O 09/12/17 09/12/17 09/12/17 09/13/17 09/13/17 09/13/17 07:00 15:00 23:00 07:00 15:00 23:00 Intake Total 435 ml 100 ml 3389 ml 600 ml Output Total 200 ml Balance 435 ml -100 ml 3389 ml 600 ml Intake Oral 2000 ml IV Total 435 ml 100 ml 1389 ml Other 600 ml Output Stool Total 200 ml # Voids 1 6 # Bowel Movements 1 8 Result Diagram: 09/13/17 0600 09/13/17 0600 Imaging Last Impressions Abdomen/Pelvis CT 09/13/17 0034 Signed Impressions: Service Date/Time: Wednesday, September 13, 2017 00:26 - CONCLUSION: 1. Sigmoid colon diverticula. 2. Hepatic steatosis. 3. 2.5 cm focal hepatic lesion. This is nonspecific. The peripheral enhancement suggesting this may represent a hemangioma. This could be further evaluated as an outpatient. 4. Right renal cyst. Raúl Perdue MD Objective Remarks General: No acute distress. Heart: Regular rate and rhythm. No murmur. Lungs: Clear to auscultation bilaterally. No wheezes, rales, or rhonchi. Breathing is nonlabored. Abdomen: Soft, nontender, nondistended. Extremities: No lower extremity edema. Psych: Alert and oriented. Procedures 09/13/17 EGD/colonoscopy Urinary Catheter: No Vascular Central Line Catheter: No A/P Assessment and Plan 1. GI bleed: Appreciate gastroenterology recommendations. Status post EGD, colonoscopy. No active bleeding noted. MRI of the abdomen is pending. Continue Protonix drip. Monitor H&H. Transfuse if hemoglobin less than 8. 2. Anemia secondary to acute blood loss from GI bleed: Monitor H&H. Transfuse if hemoglobin less than 8. 3. Diarrhea: Patient states that she has not had loose stools today. C. difficile negative. 4. Chronic lower back pain: Tramadol, acetaminophen as needed. Avoid NSAIDs. 5. Coronary artery disease: Resume aspirin when okay with GI. Currently asymptomatic. 6. DVT prophylaxis: SCDs. Chemical prophylaxis contraindicated secondary to GI bleed. Discharge Planning When cleared by gastroenterology, H&H are stable, and tolerating diet. Nadir Garcia MD Sep 13, 2017 12:12
--- NOTE | 2017-09-13 12:30 | RADRPT ---
EXAM DATE/TIME: 09/13/2017 10:47 [facility] COMPARISON: CT ABDOMEN & PELVIS W CONTRAST, September 13, 2017, 0:26. INDICATIONS : Abnormal CT scan. Bleeding from rectum. CONTRAST: 17 cc Omniscan (gadodiamide) IV MEDICAL HISTORY : None. SURGICAL HISTORY : Hysterectomy. bladder tacking ENCOUNTER: Subsequent ACUITY: 2 day PAIN SCORE: 0/10 LOCATION: abdomen TECHNIQUE: Multiplanar, multisequence magnetic resonance imaging of the abdomen was performed without and with i ntravenous contrast. FINDINGS: LIVER: Normal size and signal characteristics characteristic of hepatic steatosis and focal fatty sparing.. A focal approximate 3 cm mass is again noted in the right lobe and this demonstrates low signal on T1 -weighted images and high signal on T2-weighted images. After gadolinium administration the lesion fi lls in from the periphery. There is an adjacent small 5 mm lesion located in the more posterior right lobe which also demonstrates low signal on the T1-weighted images and fills in after gadolinium admi nistration. No other focal lesions or ductal dilatation. Portal vein is within normal limits. BILIARY: There is no intra- or extra-hepatic biliary ductal dilatation. Gallbladder contains no stones. SPLEEN: Within normal limits. PANCREAS: Within normal limits. ADRENALS: Within normal limits. KIDNEYS: Normal size and signal intensity. There is no hydronephrosis or solid mass. There is a simple cyst a gain noted in the right kidney. OTHER: Aorta is nonaneurysmal. There is no lymphadenopathy. CONCLUSION: 1. 2 lesions in the right lobe of the liver characteristic of cavernous hemangiomas. 2. Hepatic steatosis with focal fatty sparing. 3. Simple renal cyst. Mychal Rock MD on September 13, 2017 at 12:22 Board Certified Radiologist. This report was verified electronically.
[2017-09-13] MEDS ORDERED: PANTOPRAZOLE INJ 80 MG in SODIUM CHLORIDE 0.9% INJ 100 ML IV SCH (14:00)
--- NOTE | 2017-09-13 15:07 | EKG ---
Date Performed: 09/13/2017 Time Performed: 00:43:37 PTAGE: 62 years EKG: Sinus rhythm SEPTAL MYOCARDIAL INFARCTION Since previous tracing, no significant change noted ABNORMAL ECG PREVIOUS TRACING : 11/12/2013 18.21 DOCTOR: Carole Bell Interpretating Date/Time 09/13/2017 15:06:01
[2017-09-13 15:44] LABS: HEMATOCRIT 25.5 % (35.0-46.0); HEMOGLOBIN 8.6 GM/DL (11.6-15.3)
[2017-09-13 16:00] VITALS: BP 117/67; PULSE 77; RESP 18; TEMP 97.2; O2SAT 100
[2017-09-13] MEDS ORDERED: PROT40TA PO (17:11)
--- NOTE | 2017-09-13 17:12 | HHI.DCPOC ---
Discharge Care Plan Diagnosis: (1) GI bleed (2) Anemia Goals to Promote Your Health * To prevent worsening of your condition and complications * To maintain your health at the optimal level Directions to Meet Your Goals Take your medications as prescribed Follow your dietary instruction Follow activity as directed Keep your appointments as scheduled Take your immunizations and boosters as scheduled If your symptoms worsen call your PCP, if no PCP go to Urgent Care Center or Emergency Room Smoking is Dangerous to Your Health. Avoid second hand smoke Call the 24-hour hour crisis hotline for domestic abuse at Nadir Tony Sep 13, 2017 17:12
== END 2017-09-13 19:01 | disposition home or self-care (01) | DRG 378 ==
LOC: PHED 07:59 → PHEDA 10:18 → PH3A 13:50
PROVIDERS: ADMIT Family Medicine; ATTEND Family Medicine
PROC: 0DJD8ZZ Inspection of Lower Intestinal Tract, Via Natural or Artificial Opening Endoscopic (ICD-10-PCS; principal; 2017-09-13 07:13)
PROC: 0DB78ZX Excision of Stomach, Pylorus, Via Natural or Artificial Opening Endoscopic, Diagnostic (ICD-10-PCS; 2017-09-13 07:13)
DX: K92.2 Gastrointestinal hemorrhage, unspecified (principal); D62 Acute posthemorrhagic anemia; I11.0 Hypertensive heart disease with heart failure; I50.9 Heart failure, unspecified; G89.29 Other chronic pain; M54.5 Low back pain; R19.7 Diarrhea, unspecified; I25.10 Atherosclerotic heart disease of native coronary artery without angina pectoris; K44.9 Diaphragmatic hernia without obstruction or gangrene; J44.9 Chronic obstructive pulmonary disease, unspecified; K64.4 Residual hemorrhoidal skin tags; K64.8 Other hemorrhoids; I25.2 Old myocardial infarction; Z95.5 Presence of coronary angioplasty implant and graft; Z79.82 Long term (current) use of aspirin; Z87.11 Personal history of peptic ulcer disease
CPT/HCPCS: 74177; 74183; 80048; 80053; 81001; 83690; 85014; 85018; 85025; 85610; 85730; 86850; 86900; 86901; 87086; 87493; 87506; 88305; 93005; 96365; A9579; C9113; J0696; J7030; Q9963; Q9967